=== PATIENT | female | born 1955 ===

== ENCOUNTER 2022-07-23 10:30 | Day surgery (SDC) | payer OTHER ==
[~2022-07-23] VITALS: Ht 152.4 cm; Wt 54.4 kg
[~2022-07-23 10:30] MED LIST: ACID REDUCER20 M1 PO; AMITIZA8 MCG PO; COZAAR25 MG PO
== END 2022-07-23 17:30 | disposition home or self-care (01) ==
LOC: CIR.AMB 10:30
PROVIDERS: ATTEND Obstetrics & Gynecology
DX: N95.0 Postmenopausal bleeding (principal); R93.89 Abnormal findings on diagnostic imaging of other specified body structures; N85.00 Endometrial hyperplasia, unspecified; Z88.6 Allergy status to analgesic agent; Z20.822 Contact with and (suspected) exposure to COVID-19; I10 Essential (primary) hypertension; Z87.891 Personal history of nicotine dependence